=== PATIENT | female | born 1990 | race Caucasian/White ===

== ENCOUNTER 2019-02-20 14:33 | Emergency (ER) | payer BC, OTHER ==
[2019-02-20 16:02] VITALS: BP 123/84
--- NOTE | 2019-02-20 16:35 | UC ---
Skin Complaint HPI - HPI Summary HPI Summary: HAD IV PULLED OUT ON LEFT HAND THIS PAST FRIDAY. C/O REDNESS, SWELLING AND PAIN AT SITE. NO DRAINAGE. NO FEVER/CHILLS. TAKING TYLENOL/IBUPROFEN PRN. CURRENTLY PUMPING/. - History of Current Complaint Chief Complaint: UCSkin Time Seen by Provider: 02/20/19 15:57 Stated Complaint: SKIN COMPLAINT Hx Obtained From: Patient Hx Last Menstrual Period: GAVE 02/12/19 ?: No Onset/Duration: Sudden Onset, Lasting Days Skin Exposure Onset/Duration: Days Ago Timing: Constant Onset Severity: Mild Current Severity: Moderate Pain Intensity: 5 Location: Discrete Character: Redness, Raised - Allergy/Home Medications Allergies/Adverse Reactions: Allergies Allergy/AdvReac Type Severity Reaction Status Date / Time metronidazole [From Flagyl] Allergy Intermediate Nausea And Verified 02/20/19 15 :56 Vomiting sulfamethoxazole Allergy See Comment Verified 02/20/19 15:56 [From Bactrim] trimethoprim [From Bactrim] Allergy See Comment Verified 02/20/19 15:56 Home Medications: Home Medications Blood Pressure Med 1 tab BID 02/20/19 [History Confirmed 02/20/19] Iron 1 tab BID 02/20/19 [History Confirmed 02/20/19] Omeprazole 1 tab DAILY 02/20/19 [History Confirmed 02/20/19] Senna TAB* [Senokot TAB*] 1 tab DAILY 02/20/19 [History Confirmed 02/20/19] PMH/Surg Hx/FS Hx/Imm Hx Previously Healthy: Yes - Surgical History Surgical History: Yes Surgery Procedure, Year, and Place: - Family History Known Family History: Positive: Hypertension - Social History Alcohol Use: None Substance Use Type: None Smoking Status (MU): Never Smoked Tobacco - Immunization History Most Recent Tetanus Shot: WITHIN 5 YEARS Review of Systems All Other Systems Reviewed And Are Negative: Yes Skin: Positive: Other - absess with pustule noted Is Patient Immunocompromised?: No Physical Exam Triage Information Reviewed: Yes Appearance: Well-Appearing, Well-Nourished, Pain Distress Vital Signs: Initial Vital Signs Temp 98.3 F 02/20/19 15:58 Pulse 83 02/20/19 15:58 Resp 16 02/20/19 15:58 BP 123/84 02/20/19 15:58 Pulse Ox 100 02/20/19 15:58 Vital Signs Reviewed: Yes Eye Exam: Normal ENT: Positive: Pharynx normal, TMs normal Dental Exam: Normal Neck exam: Normal Respiratory Exam: Normal Respiratory: Positive: Chest non-tender, Lungs clear, Normal breath sounds Cardiovascular Exam: Normal Abdominal Exam: Normal - patient just had C section, but incision is non red Bowel Sounds: Positive: Present Musculoskeletal Exam: Normal Neurological Exam: Normal Psychological Exam: Normal Skin: Positive: Other - abscess with pustule in the left hand, from IV site Course/Dx - Course Course Of Treatment: hx obtained, exam performed ,meds reviewed, i and d of hand performed, wound culture obtained. started on abx - Differential Diagnoses - Skin Complaint Differential Diagnoses: Abscess, Cellulitis, Other - phlebitis - Diagnoses Provider Diagnosis: Abscess of hand, left Discharge - Sign-Out/Discharge Documenting (check all that apply): Patient Departure All imaging exams completed and their final reports reviewed: No Studies - Discharge Plan Condition: Stable Disposition: HOME Prescriptions: Cephalexin CAP* [Keflex CAP*] 500 mg PO TID #21 cap Patient Education Materials: Abscess (ED) Referrals: No Primary Care Phys,NOPCP [Primary Care Provider] - Additional Instructions: 1. take the medication as prescribed. 2. Soak your hand twice a day until cleared. 3. Follow up if the redness is spreading, or if you develop a fever - Billing Disposition and Condition Condition: STABLE Disposition: Home
--- NOTE | 2019-02-22 08:01 | UC ---
- Progress Note Progress Note: gram stain wound final - no organisma await culture Fani 02/22/19 Course/Dx - Diagnoses Provider Diagnoses: Abscess of hand, left Discharge - Sign-Out/Discharge Documenting (check all that apply): Post-Discharge Follow Up All imaging exams completed and their final reports reviewed: No Studies - Discharge Plan Condition: Stable Disposition: HOME Prescriptions: Cephalexin CAP* [Keflex CAP*] 500 mg PO TID #21 cap Patient Education Materials: Abscess (ED) Referrals: No Primary Care Phys,NOPCP [Primary Care Provider] - Additional Instructions: 1. take the medication as prescribed. 2. Soak your hand twice a day until cleared. 3. Follow up if the redness is spreading, or if you develop a fever - Billing Disposition and Condition Condition: STABLE Disposition: Home
--- NOTE | 2019-02-23 14:17 | UC ---
- Progress Note Progress Note: wound culture + MRSA please have the pt. stop Keflex will call in Clinda x 10 days Course/Dx - Diagnoses Provider Diagnoses: Abscess of hand, left Discharge - Sign-Out/Discharge Documenting (check all that apply): Patient Departure All imaging exams completed and their final reports reviewed: No Studies - Discharge Plan Condition: Stable Disposition: HOME Prescriptions: Cephalexin CAP* [Keflex CAP*] 500 mg PO TID #21 cap Clindamycin Cap(NF) [Clindamycin Cap 300 mg Cap(NF)] 300 mg PO Q6H #40 cap Patient Education Materials: Abscess (ED) Referrals: No Primary Care Phys,NOPCP [Primary Care Provider] - Additional Instructions: 1. take the medication as prescribed. 2. Soak your hand twice a day until cleared. 3. Follow up if the redness is spreading, or if you develop a fever - Billing Disposition and Condition Condition: STABLE Disposition: Home
== END 2019-02-20 16:46 | disposition home or self-care (01) ==
LOC: UCCORT 14:33
DX: O99.73 Diseases of the skin and subcutaneous tissue complicating the puerperium (principal); L02.511 Cutaneous abscess of right hand; Z88.1 Allergy status to other antibiotic agents; Z88.2 Allergy status to sulfonamides
CPT/HCPCS: 10060; 87070; 87077; 87186; 87205; 99212; G0463